=== PATIENT | male | born 1970 | race Two or more races ===

== ENCOUNTER 2020-04-21 18:37 | Emergency (ER) | payer MEDICAID ==
[~2020-04-21] VITALS: Ht 180.3 cm; Wt 83.0 kg
[2020-04-21] MEDS ORDERED: IBUPROFEN 600MG TABLET PO ONE (19:00)
[2020-04-21] MEDS ORDERED: HYDROCODONE/ACETAMINOPHEN 5/325MG TABLET PO ONE (19:00)
[2020-04-21 19:42] LABS: BASOPHILS % 0.8 % (0.0-2.0); EOSINOPHILS % 2.9 % (0.0-5.0); HEMATOCRIT. 41.8 % (42.0-52.0); HEMOGLOBIN. 14.5 g/dL (14.0-18.0); LYMPHOCYTES % 32.6 % (20.0-50.0); MEAN CORPUSCULAR HEMOGLOBIN 33.6 pg (28.0-32.0); MEAN PLATELET VOLUME 7.4 fl (7.4-10.4); MONOCYTES % 6.6 % (2.0-8.0); NEUTROPHILS % 57.1 % (40.0-76.0); PLATELET 268 x1000/uL (130-400); RED BLOOD CELL COUNT 4.31 mill/uL (4.7-6.1); RED CELL DISTRIBUTION WIDTH 12.1 % (11.6-14.6)
[2020-04-21 19:49] LABS: CHLORIDE 103 mEq/L (98-107)
[2020-04-21 19:57] LABS: C REACTIVE PROTEIN CARDIAC 0.69 mg/L (0.00-3.00)
[2020-04-21] MEDS ORDERED: SULFAMETHOXAZOLE/TRIMETHOPRIM 800/160MG TABLET PO ONE (20:15)
[2020-04-21 21:19] VITALS: BP 121/74
== END 2020-04-21 21:20 | disposition home or self-care (01) ==
LOC: ER 18:37
DX: S52.691A Other fracture of lower end of right ulna, initial encounter for closed fracture (principal); S62.101A Fracture of unspecified carpal bone, right wrist, initial encounter for closed fracture; W34.09XA Accidental discharge from other specified firearms, initial encounter; Y93.89 Activity, other specified; Y92.89 Other specified places as the place of occurrence of the external cause; Y99.8 Other external cause status; Z88.0 Allergy status to penicillin; E11.9 Type 2 diabetes mellitus without complications; Z98.890 Other specified postprocedural states
CPT/HCPCS: 29125; 36415; 73090; 73110; 73130; 80053; 85025; 85651; 86141; 99284

== ENCOUNTER 2020-06-10 12:39 | Emergency (ER) | payer MEDICAID ==
[~2020-06-10] VITALS: Ht 180.3 cm; Wt 81.0 kg
[2020-06-10 13:11] VITALS: BP 100/71
[2020-06-10] MEDS ORDERED: SODIUM CHLORIDE 0.9% 1,000 ML IV ONE (14:27)
[2020-06-10 15:21] LABS: BASOPHILS % 0.5 % (0.0-2.0); EOSINOPHILS % 1.3 % (0.0-5.0); HEMATOCRIT. 46.1 % (42.0-52.0); HEMOGLOBIN. 16.4 g/dL (14.0-18.0); LYMPHOCYTES % 25.4 % (20.0-50.0); MEAN CORPUSCULAR HEMOGLOBIN 33.8 pg (28.0-32.0); MEAN CORPUSCULAR VOLUME 94.9 fL (80.0-94.0); MEAN PLATELET VOLUME 6.8 fl (7.4-10.4); MONOCYTES % 6.1 % (2.0-8.0); NEUTROPHILS % 66.7 % (40.0-76.0); PLATELET 259 x1000/uL (130-400); RED BLOOD CELL COUNT 4.85 mill/uL (4.7-6.1)
[2020-06-10 15:22] LABS: CHLORIDE 103 mEq/L (98-107)
[2020-06-10 15:28] LABS: PARTIAL THROMBOPLASTIN TIME 26.5 sec (23.4-31.0); PROTHROMBIN TIME 10.4 sec (9.6-11.0)
== END 2020-06-10 17:17 | disposition left against medical advice (07) ==
LOC: ER 12:39
DX: S52.691A Other fracture of lower end of right ulna, initial encounter for closed fracture (principal); R20.0 Anesthesia of skin; E11.9 Type 2 diabetes mellitus without complications; Z88.0 Allergy status to penicillin; X93.XXXA Assault by handgun discharge, initial encounter; Y93.89 Activity, other specified; Y92.89 Other specified places as the place of occurrence of the external cause
CPT/HCPCS: 36415; 73090; 73110; 73130; 80053; 85025; 85610; 85730; 86850; 86900; 86901; 99284; J7030